=== PATIENT | female | born 1950 | race Caucasian/White ===

== ENCOUNTER → 2017-05-29 | Outpatient (CLI) | payer BC ==
--- NOTE | 2017-05-29 13:52 | KCIC ---
Examination: MRI of the right knee without contrast HISTORY: History of right knee pain, prior ACL repair COMPARISON: None available TECHNIQUE: Multiplanar, multisequence MRI imaging of the right knee was performed without contrast. FINDINGS: The visualized reconstructed anterior cruciate ligament is intact. The posterior cruciate ligament appear intact. Blunting of the posterior horn of the medial meniscus best visualized on series 6 image #6 with increased signal within likely tear of the posterior horn of the medial meniscus. The lateral meniscus appears intact. The medial collateral ligament is intact. The lateral collateral ligamentous complex including the fibular collateral ligament, biceps femoris tendon, popliteus tendon appear intact. The medial retinaculum, lateral retinaculum appear intact. The extensor mechanism is intact. There is deep fissuring of cartilage identified in the weightbearing portion of the medial compartment. There is superficial fraying of cartilage identified in the lateral, patellofemoral compartments. Small knee joint effusion is identified with a small nonleaking popliteal cyst. Moderate joint space loss identified in the medial, lateral ,patellofemoral compartments. IMPRESSION: 1. Tear of the posterior horn of the medial meniscus. 2. The reconstructed anterior cruciate ligament appears intact. 3. Small knee joint effusion with a small amount leaking popliteal cyst. 4. Grade 2 chondromalacia medial compartment. Grade I chondromalacia lateral, patellofemoral compartments. Moderate tricompartmental degenerative changes. Electronically signed by: Pedro Schneider MD (05/29/2017 1:49 PM) [facility]
== END | disposition home or self-care (01) ==
LOC: KCIC MRI 12:25
PROVIDERS: ATTEND Orthopaedic Surgery
DX: S83.241A Other tear of medial meniscus, current injury, right knee, initial encounter (principal); M94.261 Chondromalacia, right knee; M71.21 Synovial cyst of popliteal space [Baker], right knee; X58.XXXA Exposure to other specified factors, initial encounter; Y93.89 Activity, other specified; Y92.89 Other specified places as the place of occurrence of the external cause; Y99.8 Other external cause status
CPT/HCPCS: 73721

== ENCOUNTER → 2017-11-19 | Outpatient (CLI) | payer MEDICARE ==
[~2017-11-19] MED LIST: IOHEXOL 240 MG/ML 50ML VIAL. IV; IOHEXOL 240 MG/ML 50ML VIAL. PO
[2017-11-19 15:02] LABS: ISTAT CREATININE 0.6 mg/dL (0.6-1.1)
[2017-11-19] MEDS: IOHEXOL 300 MG/ML 100ML VIAL. IV (15:09)
== END | disposition home or self-care (01) ==
LOC: KCIC CT 13:01
DX: K76.0 Fatty (change of) liver, not elsewhere classified (principal); K57.30 Diverticulosis of large intestine without perforation or abscess without bleeding
CPT/HCPCS: 74177; 82565; Q9967